=== PATIENT | male | born 1975 | race Caucasian/White ===

== ENCOUNTER 2017-06-30 01:28 | Inpatient (IN) | payer OTHER ==
[~2017-06-30] VITALS: Ht 172.7 cm; Wt 82.3 kg
[2017-06-30] MEDS ORDERED: ADENOSINE 6 MG/2 ML ONE (01:34)
[2017-06-30] MEDS ORDERED: SODIUM CHLORIDE 0.9% 1,000 ML IV ONE (01:35)
[2017-06-30] MEDS ORDERED: LORazepam 2 MG/ML, 1ML ONE ×3 (01:45→02:10)
[2017-06-30] MEDS ORDERED: DILTIAZEM 5 MG/ML, 5ML ONE (01:45)
[2017-06-30] MEDS ORDERED: LORazepam 2 MG/ML, 1ML IVPush ONE ×3 (02:00)
[2017-06-30] MEDS ORDERED: ADENOSINE 6 MG/2 ML IVPush ONE ×2 (02:00)
[2017-06-30] MEDS ORDERED: MAGNESIUM SULFATE 1 GM, THIAMINE 100 MG, FOLIC ACID 1 MG, MVI ADULT 10 ML in SODIUM CHL... IV ONE (02:00)
[2017-06-30] MEDS ORDERED: DIPH,PERTUSS(ACELL),TET VAC/PF NC IM-VACC ONE (02:00)
[2017-06-30] MEDS ORDERED: SODIUM CHLORIDE FLUSH 10ML SYR IVF ONE (02:00)
[2017-06-30] MEDS ORDERED: SODIUM CHLORIDE 0.9% 1,000ML IVBOLUS ONE (02:00)
[2017-06-30] MEDS ORDERED: LORazepam 2 MG/ML, 1ML IVPush PRN (02:00)
[2017-06-30] MEDS ORDERED: ONDANSETRON 2MG/ML, 2ML IVPush ONE (02:00)
[2017-06-30] MEDS ORDERED: PLEASE ENTER ALLERGIES MC SCH (02:00)
[2017-06-30 02:15] LABS: ANION GAP 17 mmol/L (5-15); CALCIUM 8.8 mg/dL (8.5-10.1); CHLORIDE 94 mmol/L (98-107); CREATININE 0.93 mg/dL (0.7-1.3)
[2017-06-30 02:16] LABS: ALANINE AMINOTRANSFERASE 102 U/L (12-78); ALBUMIN 4.1 g/dL (3.4-5.0)
[2017-06-30 02:26] LABS: ALKALINE PHOSPHATASE 136 U/L (45-117); T4 (THYROXINE) 9.4 mcg/dL (4.5-12.1); TOTAL PROTEIN 8.1 g/dL (6.4-8.2)
[2017-06-30] MEDS ORDERED: DILTIAZEM 125 MG in DEXTROSE 5% 100 ML IV SCH (02:30)
[2017-06-30] MEDS ORDERED: DILTIAZEM 5 MG/ML, 5ML IV ONE (02:30)
[2017-06-30] MEDS ORDERED: DILTIAZEM 5 MG/ML, 5ML IVPush ONE (02:30)
[2017-06-30 02:32] LABS: MEAN CORPUSCULAR HEMOGLOBIN 33.7 pg (27.5-34.5); MEAN CORPUSCULAR HGB CONC 34.2 g/dL (33.2-36.2); MEAN CORPUSCULAR VOLUME 98.4 fL (81-97); PLATELET COUNT 64 x10^3/uL (130-400); RED BLOOD COUNT 4.34 x10^6/uL (4.38-5.82); RED CELL DISTRIBUTION WIDTH 14.3 % (9.4-14.8)
[2017-06-30 02:34] LABS: BASOPHILS # (AUTO) 0.01 x10^3/uL (0-0.1); BASOPHILS % (AUTO) 0 % (0-1); EOSINOPHILS # (AUTO) 0.03 x10^3/uL (0-0.4); EOSINOPHILS % (AUTO) 1 % (1-7); LYMPHOCYTES # (AUTO) 0.66 x10^3/uL (1-3.4); LYMPHOCYTES % (AUTO) 19 % (22-44); MD SCAN; MONOCYTES # (AUTO) 0.49 x10^3/uL (0.2-0.8); MONOCYTES % (AUTO) 14 % (2-9); NEUTROPHILS # (AUTO) 2.29 x10^3/uL (1.8-6.8); NEUTROPHILS % (AUTO) 66 % (42-75)
[2017-06-30] MEDS ORDERED: LIDOCAINE 1%, 20ML INFIL ONE (03:00)
[2017-06-30] MEDS ORDERED: PANTOPRAZOLE 40 MG IV IVPush ONE (03:30)
[2017-06-30 03:47] LABS: PROTHROMBIN TIME 10.4 Seconds (9.6-11.5)
[2017-06-30] MEDS: POTASSIUM CHLORIDE 20 MEQ, MAGNESIUM SULFATE 2 GM, THIAMINE 100 MG, MVI ADULT 10 ML, FO... IV SCH (03:56)
[2017-06-30] MEDS ORDERED: LORazepam 2 MG/ML, 1ML IV PRN ×4 (04:00)
[2017-06-30] MEDS ORDERED: DIAZEPAM 5 MG/ML, 2ML IV ONE (04:00)
[2017-06-30] MEDS ORDERED: ACETAMINOPHEN 325 MG TABLET PO PRN (04:00)
[2017-06-30] MEDS ORDERED: ONDANSETRON 2MG/ML, 2ML IVPush PRN (04:00)
[2017-06-30] MEDS: ENOXAPARIN 40 MG/0.4 ML SQ SCH (05:32)
[2017-06-30 05:33] LABS: AMPHETAMINE SCREEN, URINE Negative (Negative); BARBITURATE SCREEN, URINE Negative (Negative); BENZODIAZEPINE SCREEN, URINE Negative (Negative); CANNABINOID SCREEN, URINE Negative (Negative); COCAINE SCREEN, URINE Negative (Negative); METHADONE SCREEN, URINE Negative (Negative); OPIATE SCREEN, URINE Negative (Negative)
[2017-06-30] MEDS: D5%-0.9% NACL 1,000 ML IV SCH ×3 (05:33→19:45)
[2017-06-30 05:43] VITALS: BP 138/93
[2017-06-30] MEDS: LORazepam 2 MG/ML, 1ML IV PRN ×2 (06:35→08:26)
[2017-06-30] MEDS ORDERED: [UNRECOGNIZED DRUG - REMARK] MC PRN (10:00)
[2017-06-30] MEDS ORDERED: PHENOBARBITAL SODIUM 680 MG in SODIUM CHLORIDE 0.9% 50 ML IV ONE (10:00)
[2017-06-30] MEDS: PHENOBARBITAL 20 MG/5 ML ORAL SOL PO SCH (17:16)
[2017-07-01] MEDS ORDERED: DILTIAZEM 125 MG in SODIUM CHLORIDE 0.9% 100 ML IV SCH (01:30)
[2017-07-01] MEDS: D5%-0.9% NACL 1,000 ML IV SCH (02:29)
[2017-07-01] MEDS ORDERED: DILTIAZEM 125 MG in DEXTROSE 5% 100 ML IV SCH (02:30)
[2017-07-01 04:45] LABS: ALBUMIN 3.5 g/dL (3.4-5.0); ANION GAP 12 mmol/L (5-15); CALCIUM 8.1 mg/dL (8.5-10.1); CHLORIDE 101 mmol/L (98-107)
[2017-07-01 04:55] LABS: ALANINE AMINOTRANSFERASE 65 U/L (12-78); ALKALINE PHOSPHATASE 116 U/L (45-117); BILIRUBIN,TOTAL 4.6 mg/dL (0.2-1.0); CHOL/HDL RATIO 1.5; CHOLESTEROL, TOTAL 175 mg/dL (140-239); CREATININE 0.58 mg/dL (0.7-1.3); HDL CHOL % 67 % (26-37); HDL CHOLESTEROL (DIRECT) 118 mg/dL (40-60); LDL CHOLESTEROL,CALCULATED 44 mg/dL (54-169); LDL/HDL RATIO 0.4 (0.5-3.0); TOTAL PROTEIN 6.8 g/dL (6.4-8.2); TRIGLYCERIDES 63 mg/dL (50-200); VLDL CHOLESTEROL 13 mg/dL (0-25)
[2017-07-01] MEDS: ENOXAPARIN 40 MG/0.4 ML SQ SCH (05:12)
[2017-07-01] MEDS: PHENOBARBITAL 20 MG/5 ML ORAL SOL PO SCH ×2 (05:12→17:37)
[2017-07-01 05:26] LABS: BASOPHILS # (AUTO) 0.02 x10^3/uL (0-0.1); BASOPHILS % (AUTO) 1 % (0-1); EOSINOPHILS # (AUTO) 0.09 x10^3/uL (0-0.4); EOSINOPHILS % (AUTO) 3 % (1-7); LYMPHOCYTES # (AUTO) 0.66 x10^3/uL (1-3.4); LYMPHOCYTES % (AUTO) 23 % (22-44); MD SCAN; MEAN CORPUSCULAR HEMOGLOBIN 33.5 pg (27.5-34.5); MEAN CORPUSCULAR HGB CONC 34.1 g/dL (33.2-36.2); MEAN CORPUSCULAR VOLUME 98.2 fL (81-97); MEAN PLATELET VOLUME 9.8 fL (7.4-10.4); MONOCYTES # (AUTO) 0.31 x10^3/uL (0.2-0.8); MONOCYTES % (AUTO) 11 % (2-9); NEUTROPHILS # (AUTO) 1.79 x10^3/uL (1.8-6.8); NEUTROPHILS % (AUTO) 62 % (42-75); PLATELET COUNT 59 x10^3/uL (130-400); RED BLOOD COUNT 4.17 x10^6/uL (4.38-5.82); RED CELL DISTRIBUTION WIDTH 14.1 % (9.4-14.8)
[2017-07-01] MEDS: POTASSIUM CHLORIDE 20 MEQ, MAGNESIUM SULFATE 2 GM, THIAMINE 100 MG, MVI ADULT 10 ML, FO... IV SCH (05:49)
[2017-07-01] MEDS ORDERED: POTASSIUM PHOSPHATE 44 MEQ in SODIUM CHLORIDE 0.9% 500 ML IV ONE (08:30)
[2017-07-01 12:51] VITALS: BP 130/83
[2017-07-01 19:57] VITALS: BP 121/83
[2017-07-02 01:41] VITALS: BP 150/57
[2017-07-02 05:27] LABS: CHLORIDE 101 mmol/L (98-107)
[2017-07-02 05:37] LABS: MEAN CORPUSCULAR HEMOGLOBIN 33.5 pg (27.5-34.5); MEAN CORPUSCULAR VOLUME 98.5 fL (81-97); RED CELL DISTRIBUTION WIDTH 13.9 % (9.4-14.8)
[2017-07-02 05:46] LABS: ALANINE AMINOTRANSFERASE 60 U/L (12-78); ALBUMIN 3.2 g/dL (3.4-5.0); ALKALINE PHOSPHATASE 133 U/L (45-117); ANION GAP 10 mmol/L (5-15); BILIRUBIN,TOTAL 2.6 mg/dL (0.2-1.0); CALCIUM 8.1 mg/dL (8.5-10.1); CREATININE 0.53 mg/dL (0.7-1.3); TOTAL PROTEIN 6.3 g/dL (6.4-8.2)
[2017-07-02] MEDS: ENOXAPARIN 40 MG/0.4 ML SQ SCH (06:34)
[2017-07-02] MEDS: PHENOBARBITAL 20 MG/5 ML ORAL SOL PO SCH ×2 (06:36→17:42)
[2017-07-02] MEDS: POTASSIUM CHLORIDE 20 MEQ, MAGNESIUM SULFATE 2 GM, THIAMINE 100 MG, MVI ADULT 10 ML, FO... IV SCH (06:36)
[2017-07-02 06:44] LABS: BASOPHILS # (AUTO) 0.02 x10^3/uL (0-0.1); BASOPHILS % (AUTO) 1 % (0-1); EOSINOPHILS # (AUTO) 0.11 x10^3/uL (0-0.4); EOSINOPHILS % (AUTO) 4 % (1-7); LYMPHOCYTES # (AUTO) 0.62 x10^3/uL (1-3.4); LYMPHOCYTES % (AUTO) 19 % (22-44); MD SCAN; MEAN PLATELET VOLUME 9.9 fL (7.4-10.4); MONOCYTES # (AUTO) 0.36 x10^3/uL (0.2-0.8); MONOCYTES % (AUTO) 11 % (2-9); NEUTROPHILS # (AUTO) 2.09 x10^3/uL (1.8-6.8); NEUTROPHILS % (AUTO) 65 % (42-75); PLATELET COUNT 58 x10^3/uL (130-400)
[2017-07-02 06:57] VITALS: BP 151/96
[2017-07-02] MEDS: POTASSIUM CHLORIDE 20 MEQ TAB.ER.PRT PO SCH ×2 (09:46→11:45)
[2017-07-02] MEDS: THIAMINE 100MG TABLET PO SCH (11:45)
[2017-07-02] MEDS: MULTIVITAMIN 1 TABLET PO SCH (11:45)
[2017-07-02] MEDS: FOLIC ACID 1 MG TABLET PO SCH (11:45)
[2017-07-02 14:34] VITALS: BP 128/86
[2017-07-02] MEDS ORDERED: PHENOBARBITAL 20 MG/5 ML ORAL SOL PO SCH (18:00)
[2017-07-02 18:36] VITALS: BP 150/81
[2017-07-03 00:48] VITALS: BP 146/86
[2017-07-03 05:19] LABS: MEAN CORPUSCULAR HEMOGLOBIN 33.5 pg (27.5-34.5); MEAN CORPUSCULAR HGB CONC 33.8 g/dL (33.2-36.2); MEAN CORPUSCULAR VOLUME 99.1 fL (81-97); MEAN PLATELET VOLUME 9.3 fL (7.4-10.4); PLATELET COUNT 73 x10^3/uL (130-400); RED BLOOD COUNT 3.88 x10^6/uL (4.38-5.82); RED CELL DISTRIBUTION WIDTH 14.1 % (9.4-14.8)
[2017-07-03 05:21] LABS: CHLORIDE 102 mmol/L (98-107)
[2017-07-03 05:22] LABS: ALANINE AMINOTRANSFERASE 66 U/L (12-78); ALBUMIN 3.4 g/dL (3.4-5.0); ANION GAP 10 mmol/L (5-15); CALCIUM 8.7 mg/dL (8.5-10.1); CREATININE 0.58 mg/dL (0.7-1.3)
[2017-07-03 05:23] LABS: ALKALINE PHOSPHATASE 128 U/L (45-117); BILIRUBIN,TOTAL 2.3 mg/dL (0.2-1.0); TOTAL PROTEIN 7.1 g/dL (6.4-8.2)
[2017-07-03] MEDS: PHENOBARBITAL 20 MG/5 ML ORAL SOL PO SCH (05:27)
[2017-07-03 05:49] LABS: BASOPHILS # (AUTO) 0.02 x10^3/uL (0-0.1); BASOPHILS % (AUTO) 1 % (0-1); EOSINOPHILS # (AUTO) 0.12 x10^3/uL (0-0.4); EOSINOPHILS % (AUTO) 4 % (1-7); LYMPHOCYTES # (AUTO) 0.81 x10^3/uL (1-3.4); LYMPHOCYTES % (AUTO) 25 % (22-44); MD SCAN; MONOCYTES # (AUTO) 0.49 x10^3/uL (0.2-0.8); MONOCYTES % (AUTO) 15 % (2-9); NEUTROPHILS # (AUTO) 1.83 x10^3/uL (1.8-6.8); NEUTROPHILS % (AUTO) 56 % (42-75)
[2017-07-03 07:00] VITALS: BP 127/86
[2017-07-03] MEDS: MULTIVITAMIN 1 TABLET PO SCH (07:56)
[2017-07-03] MEDS: FOLIC ACID 1 MG TABLET PO SCH (07:56)
[2017-07-03] MEDS: THIAMINE 100MG TABLET PO SCH (07:56)
[2017-07-03] MEDS ORDERED: FOLI-17 PO (09:37)
[2017-07-03] MEDS ORDERED: PHEN20EL8 PO (09:37)
[2017-07-03] MEDS ORDERED: MULT1TAB60 PO (09:37)
[2017-07-03] MEDS ORDERED: THIA100T6 PO (09:37)
[2017-07-04] MEDS ORDERED: PHENOBARBITAL 20 MG/5 ML ORAL SOL PO SCH (18:00)
[2017-07-05] MEDS ORDERED: PHENOBARBITAL 20 MG/5 ML ORAL SOL PO SCH (18:00)
== END 2017-07-03 11:20 | disposition home or self-care (01) | DRG 433 ==
LOC: ED 03:13 → EDIP 03:27 → CCU 04:15 → 5SO 07-01 13:11 → DCLOUNGE 07-03 11:03
PROVIDERS: ADMIT Hospitalist; ATTEND Hospitalist
PROC: 5A2204Z Restoration of Cardiac Rhythm, Single (ICD-10-PCS; principal; 2017-06-30)
PROC: 0HQ1XZZ Repair Face Skin, External Approach (ICD-10-PCS; 2017-06-30)
DX: K70.10 Alcoholic hepatitis without ascites (principal); F10.231 Alcohol dependence with withdrawal delirium; K70.30 Alcoholic cirrhosis of liver without ascites; D69.59 Other secondary thrombocytopenia; E83.39 Other disorders of phosphorus metabolism; E83.42 Hypomagnesemia; I47.1 Supraventricular tachycardia; I48.91 Unspecified atrial fibrillation; R40.0 Somnolence; R56.9 Unspecified convulsions; R55 Syncope and collapse; E87.6 Hypokalemia; S01.112A Laceration without foreign body of left eyelid and periocular area, initial encounter
CPT/HCPCS: 12051; 36415; 70450; 71045; 76700; 80053; 80061; 80307; 82140; 83735; 84100; 84436; 84443; 85025; 85610; 85730; 87081; 90715; 93005; 93306; 96365; 96366; 96368; 96375; 96376; J0153; J1650; J2405; J2560; J3411; J3475; J3480; J7042; C9113; J2060; J7030; J7040

== ENCOUNTER 2017-07-08 09:40 | Emergency (ER) | payer MEDICAID, OTHER ==
[~2017-07-08] VITALS: Ht 177.8 cm; Wt 82.7 kg
[~2017-07-08 09:40] MED LIST: FOLI-17 PO; MULT1TAB60 PO; PHEN20EL8 PO; THIA100T6 PO
[2017-07-08 09:42] VITALS: BP 144/90
[2017-07-08] MEDS ORDERED: BACITRACIN ZINC OINT 500U/GM, 0.9 GM ONE (10:20)
== END 2017-07-08 10:39 | disposition home or self-care (01) ==
LOC: ED 10:30
DX: S01.112D Laceration without foreign body of left eyelid and periocular area, subsequent encounter (principal); I48.91 Unspecified atrial fibrillation; X58.XXXD Exposure to other specified factors, subsequent encounter
CPT/HCPCS: 99283